=== PATIENT | female | born 1965 | race Caucasian/White ===

== ENCOUNTER 2016-10-26 22:58 | Emergency (ER) | payer OTHER ==
[~2016-10-26] VITALS: Ht 154.9 cm; Wt 58.5 kg
[2016-10-26 23:08] VITALS: Ht 154.9 cm; Wt 58.5 kg
--- NOTE | 2016-10-27 00:18 | ERD ---
ER Documentation Chief Complaint Date/Time DATE: 10/27/16 TIME: 00:16 Chief Complaint NO PERIOD X 2 MONTHS, NOW WITH HEAVY VAG BLEED X 2 WEEKS HPI 51-year-old female presents to emergency department for complaints of heavy vaginal bleeding for the last 2 weeks, soaks 2 pads per day. Patient has not had any menstruation for 2 months prior to this. Patient had a bilateral tubal ligation, and states that she is not . Patient's complaining of pelvic pain cramping pain 4/10 scale, not better or worse with anything. Patient denies any hematuria or dysuria. Patient denies any fever or chills. ROS All systems reviewed and are negative except as per history of present illness. Medications Home Meds Reported Medications [none] Unknown Strength No Conflict Check 10/27/16 Allergies Allergies: Coded Allergies: No Known Allergy (Unverified , 10/27/16) PMhx/Soc Medical and Surgical Hx: pt denies Medical Hx, pt denies Surgical Hx Hx Alcohol Use: No Hx Substance Use: No Hx Tobacco Use: No Smoking Status: Never smoker FmHx Family History: No coronary disease, No diabetes, No other Physical Exam Vitals Vital Signs Date Time Temp Pulse Resp B/P Pulse Ox O2 Delivery O2 Flow Rate FiO2 10/26/16 23:08 98.5 69 18 140/65 99 Physical Exam GENERAL: The patient is well developed and appropriate for usual state of health, in no apparent distress. CHEST: Clear to auscultation bilaterally. There are no rales, wheezes or rhonchi. HEART: Regular rate and rhythm. No murmurs, clicks, rubs or gallops. No S3 or S4. ABDOMEN: Soft, nontender and nondistended. Good bowel sounds. No rebound or guarding. No gross peritonitis. No gross organomegaly or masses. No Caruso sign or McBurney point tenderness. BACK: No midline or flank tenderness. EXTREMITIES: Equal pulses bilaterally. There is no peripheral clubbing, cyanosis or edema. No focal swelling or erythema. Full range of motion. Grossly neurovascularly intact. NEURO: Alert and oriented. Cranial nerves 2-12 intact. Motor strength in all 4 extremities with 5/5 strength. Sensation grossly intact. Normal speech and gait. SKIN: There is no apparent rash or petechia. The skin is warm and dry. HEMATOLOGIC AND LYMPHATIC: There is no evidence of excessive bruising or lymphedema. No gross cervical, axillary, or inguinal lymphadenopathy. Result Diagram: 10/27/16 0025 Results 24 hrs Laboratory Tests Test 10/27/16 00:25 White Blood Count 8.510^3/ul Red Blood Count 4.7210^6/ul Hemoglobin 10.7g/dl Hematocrit 35.4% Mean Corpuscular Volume 75.0fl Mean Corpuscular Hemoglobin 22.7pg Mean Corpuscular Hemoglobin Concent 30.2g/dl Red Cell Distribution Width 19.8% Platelet Count 85045^3/UL Mean Platelet Volume 10.1fl Neutrophils % 52.7% Lymphocytes % 33.6% Monocytes % 10.6% Eosinophils % 2.3% Basophils % 0.6% Nucleated Red Blood Cells % 0.0/100WBC Neutrophils # 4.510^3/ul Lymphocytes # 2.910^3/ul Monocytes # 0.910^3/ul Eosinophils # 0.210^3/ul Basophils # 0.110^3/ul Nucleated Red Blood Cells # 0.010^3/ul Urine Color YELLOW Urine Clarity CLEAR Urine pH 6.0 Urine Specific [place] 1.018 Urine Ketones NEGATIVEmg/dL Urine Nitrite NEGATIVEmg/dL Urine Bilirubin NEGATIVEmg/dL Urine Urobilinogen NEGATIVEmg/dL Urine Leukocyte Esterase NEGATIVELeu/ul Urine Microscopic RBC 83/HPF Urine Microscopic WBC 0/HPF Urine Squamous Epithelial Cells FEW/HPF Urine Hemoglobin 3+mg/dL Urine Glucose NEGATIVEmg/dL Urine Total Protein NEGATIVEmg/dl Beta HCG, Quantitative < 2.4mIU/ml PROCEDURE: US Pelvis. CLINICAL INDICATION: Vaginal bleeding. Last menstrual period 10/14/2016 TECHNIQUE: Multiple sonographic images of the pelvis were obtained utilizing a transabdominal technique. The images were reviewed on a PACS workstation. COMPARISON: None. FINDINGS: The uterus measures 9.5 x 3.6 x 5.3 cm and is unremarkable and appears to be retroflexed. The thickness of the endometrium equals 5.2 mm. The right ovary measures 3.3 x 2.6 x 2.5 cm and contains a 2 cm follicle. The left ovary measures 2.3 x 1.1 x 1.8 cm and is unremarkable. Color flow and spectral analysis demonstrates normal arterial flow in both ovaries. No adnexal mass or free intrapelvic fluid is seen. IMPRESSION: No abnormality seen. Consistent with 2 cm right ovarian follicle. Please see above. RPTAT: HJES .Royer Pugh MD, MD Date Time Electronically viewed and signed by .Royer Pugh MD, MD on 10/27/2016 01:31 .S/ CC: ALYSIA RG NP Procedures/MDM Medical Decision Making: Patients vaginal bleeding is most likely consistent of dysfunctional uterine bleeding. Patient does not show any evidence of hypovolemic shock. Patients hemoglobin and hematocrit is stable. There is low suspicion for ectopic . CHUCHO results show no uterine fibroids, no no other abnormality BetaHCG Quantitative is appropriate for .There is no signs of symptoms of dehydration. There is low suspicion for sepsis. Patient appears well and is hemodynamically stable. Disposition: Home. Condition: Stable Rx: Ferrous sulfate Instructions: Patient is advised to do bed rest, avoid heavy lifting, and avoid having sex until cleared by OB doctor. Was advised to see OB doctor for further evaluation. Patient is advised that is symptoms are worst, severe bleeding, dizziness, severe abdominal pain, fever, worst signs and symptoms to return to the emergency department immediately. Departure Diagnosis: Primary Impression: Vaginal bleeding Condition: Stable Patient Instructions: Dysfunctional Uterine Bleeding Additional Instructions: Patient is advised to do bed rest, avoid heavy lifting, and avoid having sex until cleared by OB doctor. Was advised to see OB doctor for further evaluation. Patient is advised that is symptoms are worst, severe bleeding, dizziness, severe abdominal pain, fever, worst signs and symptoms to return to the emergency department immediately. ALYSIA RG NP Oct 27, 2016 00:18
[2016-10-27 00:55] LABS: BASOPHIL # 0.1 10^3/ul (0.0-0.1); BASOPHILS % 0.6 % (0.0-2.0); EOSINOPHILS # 0.2 10^3/ul (0.0-0.5); EOSINOPHILS % 2.3 % (0.0-7.0); HEMATOCRIT 35.4 % (37.0-47.0); HEMOGLOBIN 10.7 g/dl (12.0-16.0); LYMPHOCYTES # 2.9 10^3/ul (0.8-2.9); LYMPHOCYTES % 33.6 % (15.0-51.0); MEAN CORPUSCULAR HEMOGLOBIN 22.7 pg (29.0-33.0); MEAN CORPUSCULAR HGB CONC 30.2 g/dl (32.0-37.0); MEAN PLATELET VOLUME 10.1 fl (7.4-10.4); MONOCYTE # 0.9 10^3/ul (0.3-0.9); MONOCYTES % 10.6 % (0.0-11.0); NEUTROPHIL # 4.5 10^3/ul (1.6-7.5); NEUTROPHILS % 52.7 % (39.0-77.0); PLATELET COUNT 386 10^3/UL (140-415); RED BLOOD COUNT 4.72 10^6/ul (4.20-5.40); RED CELL DISTRIBUTION WIDTH 19.8 % (11.5-14.5); WHITE BLOOD COUNT 8.5 10^3/ul (4.8-10.8)
[2016-10-27 01:02] LABS: ADD UMIC YES; UR ASCORBIC ACID NEGATIVE (NEGATIVE); UR BILIRUBIN (Dip) NEGATIVE (NEGATIVE); UR BLOOD (Dip) 3+ mg/dL (NEGATIVE); UR CLARITY CLEAR (CLEAR); UR COLOR YELLOW (YELLOW); UR GLUCOSE (Dip) NEGATIVE (NEGATIVE); UR KETONES (Dip) NEGATIVE (NEGATIVE); UR LEUKOCYTE ESTERASE (Dip) NEGATIVE Leu/ul (NEGATIVE); UR NITRITE (Dip) NEGATIVE (NEGATIVE); UR RBC 83 /HPF (0-5); UR SPECIFIC GRAVITY (Dip) 1.018 (1.003-1.030); UR SQUAMOUS EPITHELIAL CELL FEW /HPF (FEW); UR TOTAL PROTEIN (Dip) NEGATIVE (NEGATIVE); UR UROBILINOGEN (Dip) NEGATIVE (NEGATIVE)
--- NOTE | 2016-10-27 01:31 | RADRPT ---
PROCEDURE: US Pelvis. CLINICAL INDICATION: Vaginal bleeding. Last menstrual period 10/14/2016 TECHNIQUE: Multiple sonographic images of the pelvis were obtained utilizing a transabdominal tech nique. The images were reviewed on a PACS workstation. COMPARISON: None. FINDINGS: The uterus measures 9.5 x 3.6 x 5.3 cm and is unremarkable and appears to be retroflexed. The thickn ess of the endometrium equals 5.2 mm. The right ovary measures 3.3 x 2.6 x 2.5 cm and contains a 2 cm follicle. The left ovary measures 2.3 x 1.1 x 1.8 cm and is unremarkable. Color flow and spectr al analysis demonstrates normal arterial flow in both ovaries. No adnexal mass or free intrapelvic fluid is seen. IMPRESSION: No abnormality seen. Consistent with 2 cm right ovarian follicle. Please see above. RPTAT: HJES .Royer Pugh MD, MD Date Time Electronically viewed and signed by .Royer Pugh MD, MD on 10/27/2016 01:31 .S/
[2016-10-27] MEDS ORDERED: FER325 PO (01:44)
== END 2016-10-27 01:59 | disposition home or self-care (01) ==
LOC: FTE 22:58
DX: N93.8 Other specified abnormal uterine and vaginal bleeding (principal); R10.2 Pelvic and perineal pain
CPT/HCPCS: 36415; 76856; 81001; 84702; 85025

== ENCOUNTER 2016-10-31 16:44 | Emergency (ER) | payer OTHER ==
[~2016-10-31] VITALS: Wt 58.0 kg
[~2016-10-31 16:44] MED LIST: FER325 PO
[2016-10-31 17:19] LABS: URINE BLOOD (Dip) POC 3+ (NEGATIVE)
[2016-10-31 17:37] LABS: BASOPHILS % 0.6 % (0.0-2.0); EOSINOPHILS # 0.2 10^3/ul (0.0-0.5); EOSINOPHILS % 3.2 % (0.0-7.0); HEMATOCRIT 30.6 % (37.0-47.0); HEMOGLOBIN 9.5 g/dl (12.0-16.0); LYMPHOCYTES # 2.2 10^3/ul (0.8-2.9); LYMPHOCYTES % 31.7 % (15.0-51.0); MEAN CORPUSCULAR HEMOGLOBIN 23.8 pg (29.0-33.0); MEAN CORPUSCULAR VOLUME 76.7 fl (82.0-101.0); MEAN PLATELET VOLUME 10.2 fl (7.4-10.4); MONOCYTE # 0.6 10^3/ul (0.3-0.9); MONOCYTES % 7.9 % (0.0-11.0); NEUTROPHIL # 3.9 10^3/ul (1.6-7.5); NEUTROPHILS % 56.2 % (39.0-77.0); PLATELET COUNT 381 10^3/UL (140-415); RED BLOOD COUNT 3.99 10^6/ul (4.20-5.40); RED CELL DISTRIBUTION WIDTH 20.3 % (11.5-14.5); WHITE BLOOD COUNT 6.9 10^3/ul (4.8-10.8)
--- NOTE | 2016-10-31 18:10 | ERD ---
ER Documentation Chief Complaint Date/Time DATE: 10/31/16 TIME: 18:06 Chief Complaint VAG BLEEDING X2 WEEKS, MILD ABD PAIN HPI This is a 51-year-old female presenting to emergency department with vaginal bleeding 2 weeks. Patient states she has intermittent light and heavy vaginal bleeding over the past 2 weeks. Patient noticed more blood clots lately. No dysuria or hematuria. No urinary frequency or urgency. Patient was here 5 days ago with same symptoms and full workup was done at that time including pelvic ultrasound and lab work. At that time patient was sent home and was told everything was normal. She states she did not follow-up with her primary care provider. Patient's last menstrual period was 2 months ago and states her periods have been more irregular over the past few months. ROS All systems reviewed and are negative except as per history of present illness. Medications Home Meds Active Scripts Ferrous Sulfate* (Ferrous Sulfate*) 325 Mg Tabec, 325 MG PO BID, #60 TAB Prov:ALYSIA RG NP 10/27/16 Reported Medications [none] Unknown Strength No Conflict Check 10/27/16 Allergies Allergies: Coded Allergies: No Known Allergy (Unverified , 10/27/16) PMhx/Soc Medical and Surgical Hx: pt denies Medical Hx, pt denies Surgical Hx Hx Alcohol Use: No Hx Substance Use: No Hx Tobacco Use: No Smoking Status: Never smoker Physical Exam Vitals Vital Signs Date Time Temp Pulse Resp B/P Pulse Ox O2 Delivery O2 Flow Rate FiO2 10/31/16 16:46 99.1 78 18 123/56 98 Physical Exam Const: No acute distress, alert Head: Atraumatic Eyes: Normal Conjunctiva ENT: Normal External Ears, Nose and Mouth. Neck: Full range of motion..~ No meningismus. Resp: Clear to auscultation bilaterally. No wheezing, rhonchi or crackles. Cardio: Regular rate and rhythm, no murmurs Abd: Soft, non tender, non distended. Normal bowel sounds Skin: No petechiae or rashes Back: No midline or flank tenderness Ext: No cyanosis, or edema Neur: Awake and alert Psych: Normal Mood and Affect Result Diagram: 10/31/16 3154 Results 24 hrs Laboratory Tests Test 10/31/16 17:15 10/31/16 17:25 White Blood Count 6.910^3/ul Red Blood Count 3.9910^6/ul Hemoglobin 9.5g/dl Hematocrit 30.6% Mean Corpuscular Volume 76.7fl Mean Corpuscular Hemoglobin 23.8pg Mean Corpuscular Hemoglobin Concent 31.0g/dl Red Cell Distribution Width 20.3% Platelet Count 35889^3/UL Mean Platelet Volume 10.2fl Neutrophils % 56.2% Lymphocytes % 31.7% Monocytes % 7.9% Eosinophils % 3.2% Basophils % 0.6% Nucleated Red Blood Cells % 0.0/100WBC Neutrophils # 3.910^3/ul Lymphocytes # 2.210^3/ul Monocytes # 0.610^3/ul Eosinophils # 0.210^3/ul Basophils # 0.010^3/ul Nucleated Red Blood Cells # 0.010^3/ul Bedside Urine pH (LAB) 6.5 Bedside Urine Protein (LAB) 1+ Bedside Urine Glucose (UA) Negative Bedside Urine Ketones (LAB) Negative Bedside Urine Blood 3+ Bedside Urine Nitrite (LAB) Negative Bedside Urine Leukocyte Esterase (L Negative Procedures/MDM [place] [id number] Radiology Main Line: [phone] DIAGNOSTIC IMAGING REPORT Patient: IVAN DYER : 1965 Age: 51 Sex: F [id number] DOS: 10/31/16 1658 Ordering MD: SUELLEN HUTTON NP Location: [facility] Room/Bed: PROCEDURE: US Pelvis. CLINICAL INDICATION: pelvic pain, vaginal bleeding x 2 weeks TECHNIQUE: Multiple sonographic images of the pelvis were obtained utilizing a transabdominal and endovaginal technique. The images were reviewed on a PACS workstation. COMPARISON: 10/27/2016 FINDINGS: The uterus is visualized and measures 4.3 x 6.0 x 10.1 cm. The endometrial echo complex is normal and measures 5 mm . The right ovary measures 1.9 x 2.1 x 2.3 cm The left ovary measures 1.8 x 0.9 x 2.0 cm. The previously noted right ovarian cyst is not well visualized. There is normal vascular flow to both ovaries. No adnexal masses or free fluid is identified. IMPRESSION: No definite abnormalities are identified. The previously noted right ovarian cyst is not visualized. MDM: This is a 51-year-old female presents emergency department with irregular vaginal bleeding 2 weeks. Patient denies abdominal or pelvic pain. Patient has had intermittent light and heavy vaginal bleeding over the last 2 weeks. Patient was recently here 5 days ago with same symptoms. Hemoglobin is down trending to 9.5 however is not critical value at this time. Urine shows 3+ blood, 1+ protein and is negative for infection. Urine is negative. Pelvic ultrasound reviewed by radiologist as no definite abnormalities are identified. The previously noted right ovarian cyst is not visualized. Vital signs are stable. Patient is afebrile upon arrival to ED. Low suspicion for ectopic , , anemia or hemorrhage. Patient' s diagnosis is vaginal bleeding. Patient is appropriate for outpatient management instructed to follow-up with it engineer in the next 2-3 days for reassessment. Resources provided. Return to ED for any high fever, chest pain, difficulty breathing, shortness breath, wheezing, vomiting, diarrhea, abdominal pain or any new or worsening symptoms. Patient verbalizes understanding. All questions answered at discharge. Estonian translation used during this encounter. Departure Diagnosis: Primary Impression: Vaginal bleeding Condition: Stable SUELLEN HUTTON NP Oct 31, 2016 18:10
--- NOTE | 2016-10-31 18:26 | RADRPT ---
PROCEDURE: US Pelvis. CLINICAL INDICATION: pelvic pain, vaginal bleeding x 2 weeks TECHNIQUE: Multiple sonographic images of the pelvis were obtained utilizing a transabdominal and endovaginal technique. The images were reviewed on a PACS workstation. COMPARISON: 10/27/2016 FINDINGS: The uterus is visualized and measures 4.3 x 6.0 x 10.1 cm. The endometrial echo complex is normal an d measures 5 mm . The right ovary measures 1.9 x 2.1 x 2.3 cm The left ovary measures 1.8 x 0.9 x 2.0 cm. The previ ously noted right ovarian cyst is not well visualized. There is normal vascular flow to both ovarie s. No adnexal masses or free fluid is identified. IMPRESSION: No definite abnormalities are identified. The previously noted right ovarian cyst is not visualized . RPTAT:AAJJ Physician Robby Date Time Electronically viewed and signed by Physician Robby on 10/31/2016 18:26 /
== END 2016-10-31 18:44 | disposition home or self-care (01) ==
LOC: FTE 16:44
DX: N93.8 Other specified abnormal uterine and vaginal bleeding (principal); R10.2 Pelvic and perineal pain
CPT/HCPCS: 36415; 76856; 81003; 85025; Z7502

== ENCOUNTER 2017-05-09 09:19 | Emergency (ER) | END 2017-05-09 14:17 | disposition home or self-care (01) ==

== ENCOUNTER 2017-05-15 08:11 | Emergency (ER) | END 2017-05-15 11:37 | disposition home or self-care (01) ==